=== PATIENT | female | born 1940 ===

== ENCOUNTER 2017-11-16 05:24 | Day surgery (SDC) | payer MEDICARE, MEDICAID ==
[2017-11-09 10:59] VITALS: BMI 28.8
[2017-11-16] MEDS ORDERED: ceFAZolin 1 gm in NS 1 GM/100 ML BAG IVPB ONE (07:13)
[2017-11-16] MEDS ORDERED: Bupivacaine HCl 0.25% PF (30 ml) Inj ONE (07:13)
[2017-11-16] MEDS ORDERED: Lidocaine/Epinephrine 1% 1:100000 10 ML IJ ONE (07:14)
[2017-11-16] MEDS ORDERED: Midazolam 2 MG/2 ML VIAL ONE (07:41)
[2017-11-16] MEDS ORDERED: Propofol 10 mg/ml Inj (20 ML) ONE (07:41)
[2017-11-16] MEDS ORDERED: Neostigmine Methylsulfate 3mg/3ml Syringe IV ONE (09:08)
[2017-11-16] MEDS ORDERED: Oxycodone/Acetaminophen 5/325 mg Tab PO PRN (09:49)
--- NOTE | 2017-11-16 09:49 | PCM.SURG1 ---
Surgeon's Initial Post Op Note - Surgeon's Notes Surgeon: Dr. Tamez Marketing Officer: Dr. Hong PGY2, Norm GARCIAA Type of Anesthesia: General Endo Pre-Operative Diagnosis: Cholelithiasis Operative Findings: See operative dictatation Post-Operative Diagnosis: Cholelithiasis Operation Performed: Robotic Cholecystectomy Specimen/Specimens Removed: Gallbladder Estimated Blood Loss: EBL {In ML}: 20 Blood Products Given: N/A Drains Used: No Drains Post-Op Condition: Good Date of Surgery/Procedure: 11/16/17 Time of Surgery/Procedure: 09:48
[2017-11-16] MEDS: HYDROmorphone 0.5 mg/0.5 ml ISec IVP PRN ×7 (09:52→11:00)
[2017-11-16] MEDS ORDERED: Lactated Ringer's 1,000 ML IV ONE (11:00)
[2017-11-16] MEDS ORDERED: DiphenhydrAMINE 50 mg/ml Inj IVP STA (11:50)
[2017-11-16 15:03] VITALS: BP 137/77; PULSE 101; RESP 18; TEMP 98; O2SAT 97
--- NOTE | 2017-11-16 21:04 | OP ---
PROCEDURE DATE: 11/16/2017 PREOPERATIVE DIAGNOSES: Chronic cholecystitis and cholelithiasis. POSTOPERATIVE DIAGNOSES: Chronic cholecystitis and cholelithiasis. PROCEDURE: Robotic cholecystectomy. SURGEON: Maikel Tamez MD. DOG OR ANIMAL SITTER: JOSE LUIS Quach and Stephane Hong. TYPE OF ANESTHESIA: General endotracheal tube anesthesia. ESTIMATED BLOOD LOSS: Around 10 mL. DRAINS: None. PATHOLOGY: Gall bladder with gallstones was sent for the pathology. COMPLICATIONS: None. INTRAOPERATIVE FINDINGS: The patient had changes of chronic cholecystitis and cholelithiasis. DESCRIPTION OF PROCEDURE: On intraoperative steps, this 77-year-old female who was diagnosed with chronic cholecystitis and cholelithiasis and the patient was consented for the robotic cholecystectomy, possible open, brought to the OR, placed supine on the operating table. After induction of anesthesia, the abdomen was prepped and draped in the usual sterile fashion. A supraumbilical transverse incision was made after incising the skin, the subcutaneous tissue, and the fascia. The camera port was placed. Pneumo was created. Another 3.8 mm port was placed in the upper abdomen, the robot was brought in. Camera arm as well as arm 1 and arm 2 were docked and the gall bladder was retracted cranially. The Calot's triangle dissection was done. Cystic duct and cystic artery were identified. The top-down approach was done. Critical view of the safety was identified and intraoperative Firefly was used to identify the ductal anatomy. The cystic duct and the cystic artery were clipped at 3 places and cut in between 2 clips to near the gallbladder. The gallbladder was dissected free from the gallbladder fossa, taken in EndoCatch bag, taken out through the umbilical port site and sent off the table for pathology. There was proper hemostasis in each and every part of the procedure. There was no apparent complication. All the instruments were taken out, robot was undocked. All the ports were taken out under vision, pneumo was deflated. The umbilical port site was closed in a two layer and the fascia with 0 Vicryl, skin with 4-0 Monocryl, and dry sterile dressing was applied. The patient tolerated the procedure well. Count of instrument and gauze was correct. There was no apparent complication. The patient was extubated in OR and sent to the postanesthesia care unit in stable condition. Maikel Tamez MD [facility] # [id number]
== END 2017-11-16 13:45 | disposition home or self-care (01) ==
LOC: C.SDS 05:24
PROVIDERS: ATTEND Surgery Surgical Critical Care
DX: K80.50 Calculus of bile duct without cholangitis or cholecystitis without obstruction (principal); K80.10 Calculus of gallbladder with chronic cholecystitis without obstruction
CPT/HCPCS: 47562; 82948; 88304; J0131; J0690; J1100; J1170; J1200; J2250; J2405; J2704; J2710; J3010; J7120; S2900